=== PATIENT | male | born 1995 | race Hispanic/Latino ===

== ENCOUNTER 2023-01-31 20:53 | Emergency (ER) | payer OTHER ==
[~2023-01-31] VITALS: Ht 167.6 cm; Wt 78.4 kg
[2023-01-31 20:54] VITALS: BP 130/78; TEMP 98.7; O2SAT 98
[2023-02-01] MEDS ORDERED: LIDOCAINE 1% MDV 20ML VIAL SC ONE (00:45)
[2023-02-01] MEDS ORDERED: CEPH500T PO (01:25)
[2023-02-01] MEDS ORDERED: CEPHALEXIN 500 MG CAP PO ONE (01:25)
== END 2023-02-01 01:40 | disposition home or self-care (01) ==
LOC: M ED 20:53
DX: S01.441A Puncture wound with foreign body of right cheek and temporomandibular area, initial encounter (principal); Y92.009 Unspecified place in unspecified non-institutional (private) residence as the place of occurrence of the external cause